=== PATIENT | female | born 1940 | race American Indian/Alaskan Native ===

== ENCOUNTER 2017-01-04 21:50 | Emergency (ER) | payer MEDICARE ==
[2017-01-04 22:08] VITALS: BP 146/80
[2017-01-04 23:36] LABS: Bilirubin,Urine NEG (Negative); Blood,Urine NEG (Negative); Ketones,Urine NEG (Negative); Leukocyte Esterase,Urine LG (Negative); Nitrite,Urine NEG (Negative); Protein,Urine <15 mg/dL mg/dL (Negative); Urobilinogen,Urine < 2.0 mg/dL (<2.0)
== END 2017-01-05 02:06 | disposition left against medical advice (07) ==
LOC: ED 21:50
DX: R35.0 Frequency of micturition (principal); Z53.21 Procedure and treatment not carried out due to patient leaving prior to being seen by health care provider
CPT/HCPCS: 81001